=== PATIENT | male | born 1960 | race Caucasian/White ===

== ENCOUNTER 2024-04-11 09:09 | Outpatient (RCR) | payer BC, SELFPAY ==
[2024-04-11 10:21] LABS: Basophils # (Auto) 0.1 Thou/mm3 (0.0-0.2); Basophils % (Auto) 1 % (0-2.5); Eosinophils # (Auto) 0.1 Thou/mm3 (0.0-0.5); Eosinophils % (Auto) 2 % (0-10); Hematocrit 41.4 % (41.0-53.0); Immature Granulocytes % (Auto) 0 % (0-0); Immature Granulocytes Auto 0.03 Thou/mm3 (0.00-0.00); Lymphocytes # (Auto) 1.7 Thou/mm3 (1.0-4.8); Lymphocytes % (Auto) 24 % (10-50); Mean Corpuscular HGB Conc 33.8 g/dl (31.0-37.0); Mean Corpuscular Hemoglobin 30.7 pg (25.0-35.0); Mean Corpuscular Volume 91 fL (80-100); Monocytes # (Auto) 0.5 Thou/mm3 (0.0-0.8); Monocytes % (Auto) 7 % (0-12); Neutrophils # (Auto) 4.5 Thou/mm3 (1.8-7.7); Neutrophils % (Auto) 65 % (37-80); Nucleated Red Blood Cell % 0 /100 WBC (0); Platelet Count 224 Thou/mm3 (140-440); RDW Standard Deviation 43.8 fL (35.1-43.9); Red Blood Count 4.56 Miln/mm3 (4.50-5.90); White Blood Count 6.9 Thou/mm3 (3.8-10.6)
[2024-04-11 10:39] LABS: Alanine Aminotransferase 22 U/L (10-49); Albumin, Serum 4.7 gm/dL (3.4-4.8); Anion Gap 6 (7-16); Aspartate Amino Transferase 20 U/L (0-34); BUN/Creatinine Ratio 23 Ratio (12-20); Bilirubin,Total 0.6 mg/dL (0.3-1.2); Blood Urea Nitrogen 14 mg/dL (9-23); Calcium 9.6 mg/dL (8.3-10.6); Carbon Dioxide 25.2 mMol/L (20.0-31.0); Chloride 106 mMol/L (98-107); Creatinine (Component) 0.6 mg/dL (0.6-1.3); Glucose 103 mg/dL (74-106); Osmolality,Calculated 274 (275-295); Potassium 4.4 mMol/L (3.4-5.1); Sodium 137 mMol/L (136-145); Total Protein 6.9 gm/dL (5.7-8.2); eGFR > 60 See Note
[2024-04-11 10:40] LABS: Albumin/Globulin Ratio 2.1 (1.2-2.2); Alkaline Phosphatase 71 U/L (46-116); Calcium (Corrected) 9.6 mg/dL (8.5-10.1); Carcinoembryonic Antigen 0.8 ng/mL (0.0-5.0); Globulin 2.2 gm/dL (2.3-3.5)
== END 2024-04-12 23:59 | disposition home or self-care (01) ==
LOC: SCTC 09:09
PROVIDERS: Internal Medicine Hematology & Oncology; PCP Specialist; Referring Provider Specialist; Visit Provider Internal Medicine Hematology & Oncology
DX: C19 Malignant neoplasm of rectosigmoid junction (principal); E11.9 Type 2 diabetes mellitus without complications; E66.9 Obesity, unspecified; Z68.32 Body mass index [BMI] 32.0-32.9, adult
CPT/HCPCS: 36591; 80053; 82378; 85025; A4216; J1642

== ENCOUNTER 2024-04-16 13:48 | Outpatient (RCR) | payer BC, SELFPAY | END 2024-05-12 23:59 | disposition home or self-care (01) | LOC: SCTC 13:48 | PROVIDERS: PCP Specialist; Referring Provider Specialist; Visit Provider Internal Medicine Hematology & Oncology | DX: C19 Malignant neoplasm of rectosigmoid junction (principal); E11.42 Type 2 diabetes mellitus with diabetic polyneuropathy; E66.9 Obesity, unspecified; Z68.32 Body mass index [BMI] 32.0-32.9, adult | CPT/HCPCS: 99212; G0463 ==

== ENCOUNTER 2024-07-16 10:55 | Outpatient (RCR) | payer BC, SELFPAY ==
--- NOTE | 2024-07-16 15:32 | CTCFLWUP_ITS ---
Patient: TANIA ODONNELL : 1960 Page 2 of 2 FOLLOW UP NOTE DATE OF SERVICE: 07/16/2024 NAME: TANIA ODONNELL ACCOUNT: [id number] : 1960 AGE: 63 INTERVAL HISTORY: Patient is doing well and here to discuss his naterra results. Patient also saw physician at [facility] and requesting to order labs ordered by them. Patient otherwise doing well ONCOLOGY HISTORY: DIAGNOSIS: Malignant neoplasm of rectum [ICD10] C20 Clinical stage IIIb rectosigmoid adenocarcinoma, MMR proficient Currently undergoing neoadjuvant chemotherapy with FOLFIRINOX (08/17/2023??). 01/18/2024 for total 12 cycles of FOLFIRINOX History of type 2 diabetes. No evidence of peripheral neuropathy DATE OF DIAGNOSIS: 06/27/2023 STAGE/TNM: Stage III colon cancer TREATMENT HISTORY: Care?Plan Start?Date Cycle Day Intent FOLFIRINOX?anshu?rectal?LARISA?1?Neoadjuvant 08/17/2023 1 14 Curative?(primary) 5?FU?+?XRT?RECTAL?LARISA?2 11/07/2023 1 5 Curative?(primary) Rectal?[place]?trial?FOLFOX?neoadjuvant 11/09/2023 1 14 Curative?(primary) HISTORY OF PRESENT ILLNESS: The patient is a 63-year-old male with a history of type 2 diabetes was recently diagnosed with rectosigmoid adenocarcinoma. 06/27/2023: Mr. Odonnell had colonoscopy done to evaluate the cause for rectal bleeding. 07/21/2023: PET/CT scan 07/25/2023: MRI of the pelvis with IV contrast 08/17/2023: Mr. Odonnell is due for cycle of FOLFIRINOX. 08/31/2023: Mr. Odonnell received second cycle of FOLFIRINOX. 09/14/2023: Mr. Odonnell received third cycle of FOLFIRINOX. 09/28/2023: Mr. Odonnell received fourth cycle of FOLFIRINOX. 10/12/2023: Mr. Odonnell received fifth cycle of FOLFIRINOX. 10/26/2023: Mr. Odonnell received 6 cycle of FOLFIRINOX. 11/03/2023: CT scan of the abdomen and pelvis with IV contrast 11/03/2023: MRI of the pelvis with IV contrast 01/04/2024: Mr. 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 Tobacco?Pack?per?Day:?1 Tobacco?Use?Years:?30 Tobacco Use:?Quit smoking 2012; chewed tabocco x 40yrs- quit 2017 ETOH Use:?Socally now; beer daily for 15 yrs quit 15 yrs ago Drug?Note:?Denies Social History Note:?lives with adult children and grandchildren MEDICATIONS: 1. Cinnamon - 500 mg 2 Capsule Daily 2. ezetimibe-simvastatin - 10-20 mg 1 tab Daily 3. lisinopril - 40 mg 1 tab Daily 4. multivitamin - 1 Capsule Daily 5. Super B Complex - 1 tab Daily 6. turmeric root extract - 500 mg 1 tab Daily 7. Vitamin C - 1,000 mg 1 tab Daily Medications Last Reconciled by Christy Obrien MA on 07/16/2024 ALLERGIES: No Known Drug Allergies REVIEW OF SYSTEMS: A complete 14-point review of systems was performed and is negative except as noted in interval history. PHYSICAL EXAMINATION: VITAL SIGNS: PAIN: 0 - No pain ECOG Performance Status: 0 - Asymptomatic and fully active GENERAL APPEARANCE: Appears well, in no apparent distress, appropriately interactive. HEENT: Normocephalic, no temporal wasting, normal conjunctiva, no scleral icterus, normal hearing, lips without lesions, neck normal range of motion. CARDIOVASCULAR: Not assessed. PULMONARY: Normal respiratory effort, no respiratory distress or use of accessory muscles, speaking in full sentences, no tachypnea. EXTREMITIES: No pedal edema or cyanosis. SKIN: Normal skin appearance. NEUROLOGIC: Alert and oriented x4. PSHYCHIATRIC: Appropriate affect, mood normal, behavior normal, intact thought and speech. LABORATORY DATA: I have personally reviewed and interpreted each of the patient?s relevant lab tests, abnormal findings are below: Date 04/11/24 ??GLUCOSE,RANDOM?(mg/dL) 103 ??BLOOD?UREA?NITROGEN?(mg/dL) 14 ??CREATININE?(mg/dL) 0.60 ??SODIUM?(mmol/L) 137 ??POTASSIUM?(mmol/L) 4.4 ??CHLORIDE?(mmol/L) 106 ??CrCl?(CandG)?(ml/min) 157.74 ??AST/SGOT?(Unit/L) 20 ??ALT/SGPT?(Unit/L) 22 ??ALKALINE?PHOSPHATASE?(Unit/L) 71 ??BILIRUBIN,?TOTAL?(mg/dL) 0.6 ??PROTEIN?TOTAL?(gm/dl) 6.9 ??ALBUMIN,?SERUM?(gm/dl) 4.7 ??GLOBULIN?(gm/dl) 2.2?L ??ALBUMIN/GLOBULIN?RATIO 2.1 ??CALCIUM,?SERUM?(mg/dL) 9.6 ??CALCIUM?SERUM?(CORRECTED)?(mg/dL) 9.6 ASSESSMENT/PLAN: Stage IIIb (clinical T2, clinical N2, M0) rectosigmoid adenocarcinoma, MMR proficient. Completed 12 cycles of FOLFIRINOX neoadjuvantly Last dose was completed in January 2024 Patient had robotic LAR -resection done at [facility] which showed colonic tissue consistent with the donut no carcinoma. Initial diagnosis was of rectosigmoid colon low anterior resection showed residual adenocarcinoma 2 cm invading through the muscularis propria into soft tissue negative margins no carcinoma in 12 lymph nodes. Tumor size 2 x 1 x 0.6 cm all margins negative T3 N0 Ordered CBC CMP CEA and CT scan chest abdomen pelvis as per [facility] request and also for monitoring patient Discussed CT DNA results and are negative for colon cancer Will continue to monitor Mr. Odonnell every 6 months Discussed symptoms of recurrence including small caliber stools any blood and dark-colored stools changes in appetite and weight loss Patient endorsed understanding Stressed the need for plant-based diet Below problems reviewed with Mr. Odonnell and advised to follow-up with PCP #2 type 2 diabetes without any history of peripheral neuropathy. #3 obesity CBC CMP CEA CT scan chest abdomen pelvis with IV contrast RETURN TO CLINIC:Once scan results are back in 6 to 8 weeks. Can be with the video visit BILLING AND COMPLIANCE: I reviewed external records from providers outside my specialty as summarized above. I spent a total of 50 minutes on this patient?s care on the day of their visit excluding time spent related to any billed procedures. This time includes time spent with the patient as well as time spent documenting in the medical record, reviewing patients records and tests, obtaining history, placing orders, communicating with other healthcare professionals, counseling the patient, family or caregiver, and/or care coordination for the diagnoses above. Electronically Signed by: Bennie Jones MD T: 3:29 PM CC: Fernando?Sean? PCP: Aris Melendez Referring: Aris Melendez This document was completed utilizing speech recognition software. Grammatical errors, random word insertions, pronoun errors, and incomplete sentences are an occasional consequence of this system due to software limitations, ambient noise, and hardware issues. Any formal questions or concerns about the content, text or information contained within the body of this dictation should be directly addressed to the provider for clarification.
== END 2024-08-10 23:59 | disposition home or self-care (01) ==
LOC: SCTC 10:55
PROVIDERS: PCP Specialist; Referring Provider Specialist; Visit Provider Internal Medicine Hematology & Oncology
DX: Z71.2 Person consulting for explanation of examination or test findings (principal); C19 Malignant neoplasm of rectosigmoid junction; Z92.21 Personal history of antineoplastic chemotherapy; E11.9 Type 2 diabetes mellitus without complications; E66.9 Obesity, unspecified; Z68.36 Body mass index [BMI] 36.0-36.9, adult; Z90.49 Acquired absence of other specified parts of digestive tract
CPT/HCPCS: 99212; G0463

== ENCOUNTER → 2024-08-03 | Outpatient (CLI) | payer BC, SELFPAY ==
[2024-08-03 09:37] LABS: Basophils # (Auto) 0.1 Thou/mm3 (0.0-0.2); Basophils % (Auto) 1 % (0-2.5); Eosinophils # (Auto) 0.3 Thou/mm3 (0.0-0.5); Eosinophils % (Auto) 4 % (0-10); Hematocrit 43.6 % (41.0-53.0); Hemoglobin 14.9 g/dL (13.5-16.0); Immature Granulocytes % (Auto) 1 % (0-0); Immature Granulocytes Auto 0.12 Thou/mm3 (0.00-0.00); Lymphocytes # (Auto) 2.3 Thou/mm3 (1.0-4.8); Lymphocytes % (Auto) 27 % (10-50); Mean Corpuscular HGB Conc 34.2 g/dl (31.0-37.0); Mean Corpuscular Hemoglobin 29.5 pg (25.0-35.0); Mean Corpuscular Volume 86 fL (80-100); Monocytes # (Auto) 0.6 Thou/mm3 (0.0-0.8); Monocytes % (Auto) 8 % (0-12); Neutrophils # (Auto) 5.1 Thou/mm3 (1.8-7.7); Neutrophils % (Auto) 59 % (37-80); Nucleated Red Blood Cell % 0 /100 WBC (0); Platelet Count 229 Thou/mm3 (140-440); RDW Standard Deviation 44.1 fL (35.1-43.9); Red Blood Count 5.05 Miln/mm3 (4.50-5.90); White Blood Count 8.6 Thou/mm3 (3.8-10.6)
[2024-08-03 09:41] LABS: Glucose Estimated Average 123 mg/dL (80-131); Hemoglobin A1C 5.9 % Hgb (4.8-6.0)
[2024-08-03 09:54] LABS: Alanine Aminotransferase 35 U/L (10-49); Albumin, Serum 4.6 gm/dL (3.4-4.8); Albumin/Globulin Ratio 2.2 (1.2-2.2); Alkaline Phosphatase 68 U/L (46-116); Anion Gap 7 (7-16); Aspartate Amino Transferase 19 U/L (0-34); BUN/Creatinine Ratio 23 Ratio (12-20); Bilirubin,Total 0.6 mg/dL (0.3-1.2); Blood Urea Nitrogen 16 mg/dL (9-23); Carbon Dioxide 29.3 mMol/L (20.0-31.0); Carcinoembryonic Antigen < 0.5 ng/mL (0.0-5.0); Cardiac Risk Estimate 3.8 RATIO (4.0-6.7); Chloride 103 mMol/L (98-107); Cholesterol 142 mg/dL (132-200); Creatinine (Component) 0.7 mg/dL (0.6-1.3); Globulin 2.1 gm/dL (2.3-3.5); Glucose 124 mg/dL (74-106); HDL Cholesterol 37 mg/dL (40-60); LDL Cholesterol,Calculated 68 mg/dL (0-130); Osmolality,Calculated 279 (275-295); Potassium 5.3 mMol/L (3.4-5.1); Sodium 139 mMol/L (136-145); Total Protein 6.7 gm/dL (5.7-8.2); Triglycerides 183 mg/dL (30-150); eGFR > 60 See Note
[2024-08-03 10:48] LABS: Creatinine MALB Rnd Ur 57 mg/dL (30-125); Microalbumin Creat Ratio 7 mg/gCrea (<30); Microalbumin, Random Urine 4 mg/L (0-300)
== END | disposition home or self-care (01) ==
LOC: COPL 08:49
PROVIDERS: PCP Specialist; Referring Provider Internal Medicine Hematology & Oncology; Visit Provider Internal Medicine Hematology & Oncology
DX: C20 Malignant neoplasm of rectum (principal); E11.65 Type 2 diabetes mellitus with hyperglycemia; R91.1 Solitary pulmonary nodule; E78.2 Mixed hyperlipidemia
CPT/HCPCS: 36415; 80053; 80061; 82043; 82378; 82570; 83036; 85025

== ENCOUNTER → 2024-08-07 | Outpatient (CLI) | payer BC, SELFPAY ==
--- NOTE | 2024-08-07 15:30 | XR_ITS ---
Examination: CT chest with intravenous contrast CT abdomen with intravenous contrast CT pelvis with intravenous contrast CT chest without intravenous contrast CT abdomen without intravenous contrast CT pelvis without intravenous contrast 2-D coronal and sagittal reconstructions Time of exam: August 07, 2024 1547 hrs. Comparison November 02, 2023 Indications: Diagnosis malignant neoplasm colon February 2024, restaging CTDI: vol (mGy) : 34.1 DLP: (mGycm): 2287 Technique: Multiple axial images of the chest, abdomen and pelvis with intravenous contrast, 3.0 mm slice thickness. Images obtained post intravenous injection Isovue 370 60 cc. 2-D sagittal and coronal reconstructions. Low dose protocols were performed. One or more of the following dose reduction techniques were used; automated exposure control, adjustment of the mA and/or KV according to patient size, use of iterative reconstruction technique. Findings: No thoracic aortic aneurysm dilatation Pulmonary artery opacification is poor No paratracheal tracheobronchial or bronchopulmonary adenopathy Atelectasis in the left lower lobe Mild left pleural fluid 6 mm liver cyst No gallstones No pancreatic or adrenal mass No hydronephrosis Abdominal aortic calcification no aneurysmal dilatation Stable 7 mm left common iliac lymph node No new lymphadenopathy Sutures in the sigmoid colon region Urinary bladder intact Minimal prostatomegaly Impression: No interval metastatic disease in the chest Stable 7 mm left common iliac lymph node, no new lymphadenopathy
== END | disposition home or self-care (01) ==
LOC: CCTX 14:46
PROVIDERS: Referring Provider Internal Medicine Hematology & Oncology; Visit Provider Internal Medicine Hematology & Oncology
DX: C20 Malignant neoplasm of rectum (principal)
CPT/HCPCS: 71270; 74178; A4649; Q9967

== ENCOUNTER 2024-10-08 14:51 | Outpatient (RCR) | payer BC, SELFPAY ==
--- NOTE | 2024-10-09 01:27 | CTCFLWUP_ITS ---
Patient: TANIA ODONNELL : 1960 Page 7 of 8 FOLLOW UP NOTE DATE OF SERVICE: 10/08/2024 NAME: TANIA ODONNELL ACCOUNT: [id number] : 1960 AGE: 64 INTERVAL HISTORY: Marlene Joel, a post-colon cancer treatment patient, completed 12 cycles of chemotherapy in January and underwent a resection with negative margins. Recent CT and CTDNA results were negative for disease recurrence. 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 The plan includes continued surveillance, cold therapy for neuropathy, and consideration of medications for weight loss and glucose control. Chief Complaint Follow-up visit for colon cancer treatment, neuropathy symptoms post-chemotherapy History of Present Illness Marlene Joel is a patient with a history of colon cancer who completed 12 cycles of chemotherapy in January and underwent a resection. The patient is presenting for a follow-up visit to discuss recent test results and ongoing management. The patient reports experiencing neuropathy, which was mentioned as a potential side effect of chemotherapy. The neuropathy's onset, severity, and specific impact on daily functioning are not detailed. The patient has a history of diabetes, which may be exacerbating the neuropathy symptoms. Since the last visit in July, the patient has undergone CTDNA testing (DCITS) which was negative for colon cancer. The patient has been adhering to a plant-based diet as previously recommended, avoiding peanuts due to their high caloric content. No other changes in overall health status or new symptoms are reported. Medical History - Colon cancer, treated with chemotherapy and resection - Diabetes - Chemotherapy-induced peripheral neuropathy Surgical History - Colon cancer resection, with negative margins Medications and Supplements - Chemotherapy - Completed 12 cycles. Last one in January. - B6 - B12 - Gabapentin - Available for pain. - Side effects: Can be habit-forming. Social History - Diet: Following a plant-based diet, advised to avoid peanuts due to high calorie content - Exercise: Advised to increase physical activity Review of Systems Neurological: Positive for neuropathy. ONCOLOGY HISTORY: DIAGNOSIS: Malignant neoplasm of rectum [ICD10] C20 Clinical stage IIIb rectosigmoid adenocarcinoma, MMR proficient Currently undergoing neoadjuvant chemotherapy with FOLFIRINOX (08/17/2023??). 01/18/2024 for total 12 cycles of FOLFIRINOX History of type 2 diabetes. No evidence of peripheral neuropathy DATE OF DIAGNOSIS: 06/27/2023 STAGE/TNM: Stage III colon cancer TREATMENT HISTORY: Care?Plan Start?Date Cycle Day Intent FOLFIRINOX?anshu?rectal?LARISA?1?Neoadjuvant 08/17/2023 1 14 Curative?(primary) 5?FU?+?XRT?RECTAL?LARISA?2 11/07/2023 1 5 Curative?(primary) Rectal?[place]?trial?FOLFOX?neoadjuvant 11/09/2023 1 14 Curative?(primary) HISTORY OF PRESENT ILLNESS: The patient is a 64-year-old male with a history of type 2 diabetes was recently diagnosed with rectosigmoid adenocarcinoma. 06/27/2023: Mr. Odonnell had colonoscopy done to evaluate the cause for rectal bleeding. 07/21/2023: PET/CT scan 07/25/2023: MRI of the pelvis with IV contrast 08/17/2023: Mr. Odonnell is due for cycle of FOLFIRINOX. 08/31/2023: Mr. Odonnell received second cycle of FOLFIRINOX. 09/14/2023: Mr. Odonnell received third cycle of FOLFIRINOX. 09/28/2023: Mr. Odonnell received fourth cycle of FOLFIRINOX. 10/12/2023: Mr. Odonnell received fifth cycle of FOLFIRINOX. 10/26/2023: Mr. Odonnell received 6 cycle of FOLFIRINOX. 11/03/2023: CT scan of the abdomen and pelvis with IV contrast 11/03/2023: MRI of the pelvis with IV contrast 01/04/2024: Mr. 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 Tobacco?Pack?per?Day:?1 Tobacco?Use?Years:?30 Tobacco Use:?Quit smoking 2013; chewed tabocco x 40yrs- quit 2017 ETOH Use:?Socally now; beer daily for 15 yrs quit 15 yrs ago Drug?Note:?Denies Social History Note:?lives with adult children and grandchildren MEDICATIONS: 1. Cinnamon - 500 mg 2 Capsule Daily 2. CoQ-10 - 100 mg 1 Capsule As directed 3. ezetimibe-simvastatin - 10-20 mg 1 tab Daily 4. lisinopril - 40 mg 1 tab Daily 5. multivitamin - 1 Capsule Daily 6. Super B Complex - 1 tab Daily 7. turmeric root extract - 500 mg 1 tab Daily 8. Vitamin B12 - 500 mcg 1 tab Daily 9. Vitamin B6 - 100 mg 1 tab Daily 10. Vitamin C - 1,000 mg 1 tab Daily Medications Last Reconciled by Christy Obrien MA on 10/08/2024 ALLERGIES: No Known Drug Allergies REVIEW OF SYSTEMS: A complete 14-point review of systems was performed and is negative except as noted in interval history. PHYSICAL EXAMINATION: VITAL SIGNS: Temperature?99.8, B/P?146/82, Oxygen?Saturation?94% Weight?288?lbs PAIN: 0 - No pain ECOG Performance Status: 0 - Asymptomatic and fully active GENERAL APPEARANCE: Appears well, in no apparent distress, appropriately interactive. HEENT: Normocephalic, no temporal wasting, normal conjunctiva, no scleral icterus, normal hearing, lips without lesions, neck normal range of motion. CARDIOVASCULAR: Not assessed. PULMONARY: Normal respiratory effort, no respiratory distress or use of accessory muscles, speaking in full sentences, no tachypnea. EXTREMITIES: No pedal edema or cyanosis. SKIN: Normal skin appearance. NEUROLOGIC: Alert and oriented x4. PSHYCHIATRIC: Appropriate affect, mood normal, behavior normal, intact thought and speech. LABORATORY DATA: I have personally reviewed and interpreted each of the patient?s relevant lab tests, abnormal findings are below: Date 04/11/24 08/03/24 ??WHITE?BLOOD?COUNT?(Thou/mm3) 6.9 8.6 ??RED?BLOOD?COUNT?(Miln/mm3) 4.56 5.05 ??HEMOGLOBIN?(gm/dl) 14.0 14.9 ??HEMATOCRIT?(%) 41.4 43.6 ??PLATELET?COUNT?(Thou/mm3) 224 229 ??NEUTROPHILS?%,?AUTO?(%) 65 59 ??LYMPH?%,?AUTO?(%) 24 27 ??NEUTROPHILS,?AUTO?(Thou/mm3) 4.5 5.1 ??GLUCOSE,RANDOM?(mg/dL) ? 124?H ??BLOOD?UREA?NITROGEN?(mg/dL) ? 16 ??CREATININE?(mg/dL) ? 0.70 ??SODIUM?(mmol/L) ? 139 ??POTASSIUM?(mmol/L) ? 5.3?H ??CHLORIDE?(mmol/L) ? 103 ??CrCl?(CandG)?(ml/min) ? 142.53 ??AST/SGOT?(Unit/L) ? 19 ??ALT/SGPT?(Unit/L) ? 35 ??ALKALINE?PHOSPHATASE?(Unit/L) ? 68 ??BILIRUBIN,?TOTAL?(mg/dL) ? 0.6 ??PROTEIN?TOTAL?(gm/dl) ? 6.7 ??ALBUMIN,?SERUM?(gm/dl) ? 4.6 ??GLOBULIN?(gm/dl) ? 2.1?L ??ALBUMIN/GLOBULIN?RATIO ? 2.2 ??CALCIUM,?SERUM?(mg/dL) ? 10.0 ??CALCIUM?SERUM?(CORRECTED)?(mg/dL) ? 10.0 ??CEA?(O*)?(ng/ml) ? <?0.5 ASSESSMENT/PLAN: Stage IIIb (clinical T2, clinical N2, M0) rectosigmoid adenocarcinoma, MMR proficient. Completed 12 cycles of FOLFIRINOX neoadjuvantly Last dose was completed in January 2024 Patient had robotic LAR -resection done at [facility] which showed colonic tissue consistent with the donut no carcinoma. Initial diagnosis was of rectosigmoid colon low anterior resection showed residual adenocarcinoma 2 cm invading through the muscularis propria into soft tissue negative margins no carcinoma in 12 lymph nodes. Tumor size 2 x 1 x 0.6 cm all margins negative T3 N0 Marlene Joel, post-colon cancer treatment patient, completed 12 cycles of chemotherapy in January, with recent negative CT scan and CTDNA results, presenting for follow-up and management of chemotherapy-induced neuropathy. Colon Cancer (Post-treatment) Assessment: Patient completed 12 cycles of chemotherapy for colon cancer, with the last cycle in January. Surgical resection was performed with negative margins. Recent CT chest and abdomen with IV contrast on 08-07-2024 showed no interval metastatic disease in the chest and a stable 7 mm left common iliac lymph node. CTDNA results (Lencho test) were negative for colon cancer. These findings suggest a favorable response to treatment with no evidence of disease recurrence at this time. Plan: - Continue surveillance with Lencho test every 3 months - Schedule follow-up CT scan in 6 months to 1 year - Proceed with scheduled colonoscopy on February 13 - Follow-up appointment in 6 months Chemotherapy-induced Peripheral Neuropathy Assessment: Patient reports neuropathy, likely a side effect of chemotherapy treatment. This condition may be exacerbated by the patient's history of diabetes. Plan: - Recommend cold therapy: immerse hands and feet in ice water for 10 minutes daily, followed by drying and applying lotion - Continue cold therapy for 10 days; if helpful, patient may continue treatment - Consider checking vitamin B6 and B12 levels if concerned about deficiency - Discuss alternative options: - Ice packs or cold therapy gloves and socks (available on Fios) - Gabapentin for pain management (inform patient about side effects and habit- forming potential) Diabetes Mellitus Assessment: Patient has a history of diabetes, which may be contributing to the neuropathy symptoms. Weight management and glucose control are important aspects of diabetes management. Plan: - Consider medications such as Mounjaro or Wegovy for weight loss and glucose control - Recommend dietary adjustments and increased physical activity - Continue plant-based diet - Avoid peanuts due to high caloric contentDiscussed CT DNA results and are negative for colon cancer Will continue to monitor Mr. Odonnell every 6 months Discussed symptoms of recurrence including small caliber stools any blood and dark-colored stools changes in appetite and weight loss Patient endorsed understanding Stressed the need for plant-based diet Below problems reviewed with Mr. Odonnell and advised to follow-up with PCP #2 type 2 diabetes without any history of peripheral neuropathy. #3 obesity CBC CMP CEA CT scan chest abdomen pelvis with IV contrast ORDERS: Order # Description RETURN TO CLINIC: BILLING AND COMPLIANCE: I reviewed external records from providers outside my specialty as summarized above. I spent a total of 50 minutes on this patient?s care on the day of their visit excluding time spent related to any billed procedures. This time includes time spent with the patient as well as time spent documenting in the medical record, reviewing patients records and tests, obtaining history, placing orders, communicating with other healthcare professionals, counseling the patient, family or caregiver, and/or care coordination for the diagnoses above. Electronically Signed by: {Object.Sanct_ID*[email or web address]@M}, {Object.Sanct_ID*PnP.Suffix@U} D: {Object.Sanct_Date} T: {Object.Sanct_Time} CC: Fernando?Sean,? PCP: Aris Melendez Referring: Aris Melendez This document was completed utilizing speech recognition software. Grammatical errors, random word insertions, pronoun errors, and incomplete sentences are an occasional consequence of this system due to software limitations, ambient noise, and hardware issues. Any formal questions or concerns about the content, text or information contained within the body of this dictation should be directly addressed to the provider for clarification.
== END 2024-10-10 23:59 | disposition home or self-care (01) ==
LOC: SCTC 14:51
PROVIDERS: PCP Specialist; Referring Provider Specialist; Visit Provider Internal Medicine Hematology & Oncology
DX: Z08 Encounter for follow-up examination after completed treatment for malignant neoplasm (principal); Z85.038 Personal history of other malignant neoplasm of large intestine; Z90.49 Acquired absence of other specified parts of digestive tract; Z92.21 Personal history of antineoplastic chemotherapy; G62.0 Drug-induced polyneuropathy; T45.1X5D Adverse effect of antineoplastic and immunosuppressive drugs, subsequent encounter; E11.9 Type 2 diabetes mellitus without complications; E66.9 Obesity, unspecified; Z68.39 Body mass index [BMI] 39.0-39.9, adult
CPT/HCPCS: 99212; G0463

== ENCOUNTER → 2025-02-07 | Outpatient (CLI) | payer BC, SELFPAY ==
[2025-02-07 12:01] LABS: Carcinoembryonic Antigen 0.7 ng/mL (0.0-5.0); Vitamin D 25 Hydroxy Total 27.3 ng/mL (7.3-40.2)
[2025-02-07 12:04] LABS: Creatinine (Component) 0.7 mg/dL (0.6-1.3); eGFR > 60 See Note
== END | disposition home or self-care (01) ==
LOC: COPL 10:17
PROVIDERS: PCP Specialist
DX: C20 Malignant neoplasm of rectum (principal)
CPT/HCPCS: 36415; 82306; 82378; 82565

== ENCOUNTER 2025-02-13 07:25 | Day surgery (SDC) | payer BC, SELFPAY ==
[2025-02-12 12:48] VITALS: BMI 33.3
[2025-02-13] VITALS (8 sets, daily range): BP systolic 128–166; BP diastolic 76–92; PULSE 73–81; RESP 11–20; TEMP 36.7–36.8; O2SAT 92–97
[2025-02-13] MEDS: SODIUM CHLORIDE 0.9% 500 ML 500 ML 20 ML IV (09:16)
[2025-02-13] MEDS: fentaNYL CIT INJ 50 mCg/ML AMP 2ML (ASD USE ONLY) IVP (09:20)
[2025-02-13] MEDS: MIDAZOLAM INJ 1 MG/ML VIAL 2 ML (ASD USE ONLY) 2 MG IVP (09:20)
== END 2025-02-13 10:00 | disposition home or self-care (01) ==
PROVIDERS: PCP Specialist; Referring Provider Specialist; Visit Provider Specialist
PROC: 0DBE8ZX Excision of Large Intestine, Via Natural or Artificial Opening Endoscopic, Diagnostic (ICD-10-PCS; CPT 45380; principal; 2025-02-13 08:30)
DX: Z12.11 Encounter for screening for malignant neoplasm of colon (principal); Z85.048 Personal history of other malignant neoplasm of rectum, rectosigmoid junction, and anus; Z85.038 Personal history of other malignant neoplasm of large intestine; Z98.0 Intestinal bypass and anastomosis status; K64.9 Unspecified hemorrhoids; K57.30 Diverticulosis of large intestine without perforation or abscess without bleeding
CPT/HCPCS: 45378; A4649; J1200; J2250; J3010; J7999

== ENCOUNTER → 2025-02-22 | Outpatient (CLI) | payer BC, SELFPAY ==
--- NOTE | 2025-02-22 10:00 | XR_ITS ---
Examination: CT chest with intravenous contrast CT abdomen with intravenous contrast CT pelvis with intravenous contrast 2-D coronal and sagittal reconstructions Time of exam: February 22, 2025, 10:40 AM, comparison August 07, 2024 INDICATIONS: Diagnosis malignant neoplasm colon one year ago, post chemotherapy and surgery restaging CTDI: vol (mGy) : 33.9 DLP: (mGycm): 1801 Technique: Multiple axial images of the chest, abdomen and pelvis with intravenous contrast, 3.0 mm slice thickness. Images obtained post intravenous injection Isovue 370 60 cc. 2-D sagittal and coronal reconstructions. Low dose protocols were performed. One or more of the following dose reduction techniques were used; automated exposure control, adjustment of the mA and/or KV according to patient size, use of iterative reconstruction technique. Findings: Multiple subcentimeter thyroid nodules No thoracic aortic aneurysmal dilatation No pulmonary artery filling defects No paratracheal tracheobronchial or bronchopulmonary adenopathy. No pneumonia or pulmonary edema or noncalcified pulmonary nodules. No visualized liver or splenic lesion No gallstones No pancreatic mass Nodular thickening left adrenal gland No hydronephrosis 7 mm, 6 mm, 4 mm, 6 mm periaortic lymph nodes 9 mm left common iliac lymph node No bowel obstruction Normal appendix Colonic diverticulosis Rectosigmoid sutures No prostatomegaly Contracted urinary bladder Prominent osteopenia IMPRESSION: Abdominal and pelvic lymphadenopathy as above, consider PET CT scan repeat follow-up
== END | disposition home or self-care (01) ==
PROVIDERS: PCP Specialist
DX: R59.0 Localized enlarged lymph nodes (principal); C20 Malignant neoplasm of rectum
CPT/HCPCS: 71260; 74177; A4649; Q9967

== ENCOUNTER 2025-04-08 12:54 | Outpatient (RCR) | payer BC, SELFPAY ==
[2025-04-08 15:20] LABS: Basophils # (Auto) 0.1 Thou/mm3 (0.0-0.2); Basophils % (Auto) 1 % (0-2.5); Eosinophils # (Auto) 0.2 Thou/mm3 (0.0-0.5); Eosinophils % (Auto) 2 % (0-10); Hematocrit 42.4 % (41.0-53.0); Hemoglobin 14.3 g/dL (13.5-16.0); Immature Granulocytes Auto 0.08 Thou/mm3 (0.00-0.00); Lymphocytes # (Auto) 2.3 Thou/mm3 (1.0-4.8); Lymphocytes % (Auto) 25 % (10-50); Mean Corpuscular HGB Conc 33.7 g/dl (31.0-37.0); Mean Corpuscular Hemoglobin 30.0 pg (25.0-35.0); Mean Corpuscular Volume 89 fL (80-100); Monocytes # (Auto) 0.8 Thou/mm3 (0.0-0.8); Monocytes % (Auto) 8 % (0-12); Neutrophils # (Auto) 5.9 Thou/mm3 (1.8-7.7); Neutrophils % (Auto) 63 % (37-80); Nucleated Red Blood Cell # 0.00 Thou/mm3 (0.00-0.00); Nucleated Red Blood Cell % 0 /100 WBC (0); Platelet Count 255 Thou/mm3 (140-440); RDW Standard Deviation 44.4 fL (35.1-43.9); Red Blood Count 4.77 Miln/mm3 (4.50-5.90); White Blood Count 9.4 Thou/mm3 (3.8-10.6)
[2025-04-08 15:39] LABS: Glucose Estimated Average 157 mg/dL (80-131); Hemoglobin A1C 7.1 % Hgb (4.8-6.0)
[2025-04-08 15:40] LABS: Alanine Aminotransferase 65 U/L (10-49); Albumin, Serum 4.7 gm/dL (3.4-4.8); Albumin/Globulin Ratio 2.4 (1.2-2.2); Alkaline Phosphatase 55 U/L (46-116); Anion Gap 13 (7-16); Aspartate Amino Transferase 41 U/L (0-34); BUN/Creatinine Ratio 16 Ratio (12-20); Bilirubin,Total 0.4 mg/dL (0.3-1.2); Blood Urea Nitrogen 13 mg/dL (9-23); Calcium 9.3 mg/dL (8.3-10.6); Calcium (Corrected) 9.3 mg/dL (8.5-10.1); Carbon Dioxide 23.2 mMol/L (20.0-31.0); Chloride 107 mMol/L (98-107); Creatinine (Component) 0.8 mg/dL (0.6-1.3); Globulin 2.0 gm/dL (2.3-3.5); Glucose 100 mg/dL (74-106); Osmolality,Calculated 285 (275-295); Potassium 4.3 mMol/L (3.4-5.1); Sodium 143 mMol/L (136-145); Total Protein 6.7 gm/dL (5.7-8.2); eGFR > 60 See Note
[2025-04-08 15:42] LABS: Carcinoembryonic Antigen 0.7 ng/mL (0.0-5.0)
[2025-04-08 15:51] LABS: Folate > 24.00 ng/mL (>5.38); Vitamin B12 1008 pg/mL (211-911)
== END 2025-04-12 23:59 | disposition home or self-care (01) ==
LOC: SCTC 12:54
PROVIDERS: PCP Specialist; Referring Provider Specialist; Visit Provider Internal Medicine Hematology & Oncology
DX: C19 Malignant neoplasm of rectosigmoid junction (principal); G62.0 Drug-induced polyneuropathy; T45.1X5D Adverse effect of antineoplastic and immunosuppressive drugs, subsequent encounter; E11.42 Type 2 diabetes mellitus with diabetic polyneuropathy; Z92.21 Personal history of antineoplastic chemotherapy; E66.9 Obesity, unspecified; Z68.39 Body mass index [BMI] 39.0-39.9, adult
CPT/HCPCS: 36591; 80053; 82378; 82607; 82746; 83036; 85025; A4216; J1642

== ENCOUNTER 2025-04-29 09:15 | Outpatient (RCR) | payer BC, SELFPAY ==
--- NOTE | 2025-04-30 07:33 | CTCFLWUP_ITS ---
Patient: WISAM ODONNELL : 1960 Page 2 of 2 FOLLOW UP NOTE DATE OF SERVICE: 04/29/2025 NAME: WISAM ODONNELL ACCOUNT: [id number] : 1960 AGE: 64 INTERVAL HISTORY: Marlene Joel, rectal cancer treatment patient, completed 12 cycles of chemotherapy in January and underwent a resection with negative margins. Recent CT and CTDNA results were negative for disease recurrence. Recent CT shows small lymph nodes in pelvic area . will get MRI to evaluate better in May . 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 The plan includes continued surveillance, cold therapy for neuropathy, and consideration of medications for weight loss and glucose control. Chief Complaint Follow-up visit for colon cancer treatment, neuropathy symptoms post-chemotherapy History of Present Illness Marlene Joel is a patient with a history of colon cancer who completed 12 cycles of chemotherapy in January and underwent a resection. The patient is presenting for a follow-up visit to discuss recent test results and ongoing management. The patient reports experiencing neuropathy, which was mentioned as a potential side effect of chemotherapy. The neuropathy's onset, severity, and specific impact on daily functioning are not detailed. The patient has a history of diabetes, which may be exacerbating the neuropathy symptoms. Since the last visit in July, the patient has undergone CTDNA testing ([employer]) which was negative for colon cancer. The patient has been adhering to a plant-based diet as previously recommended, avoiding peanuts due to their high caloric content. No other changes in overall health status or new symptoms are reported. Medical History - Colon cancer, treated with chemotherapy and resection - Diabetes - Chemotherapy-induced peripheral neuropathy Surgical History - Colon cancer resection, with negative margins Medications and Supplements - Chemotherapy - Completed 12 cycles. Last one in January. - B6 - B12 - Gabapentin - Available for pain. - Side effects: Can be habit-forming. Social History - Diet: Following a plant-based diet, advised to avoid peanuts due to high calorie content - Exercise: Advised to increase physical activity Review of Systems Neurological: Positive for neuropathy. ONCOLOGY HISTORY:?[facility] Hx? DIAGNOSIS: Malignant neoplasm of rectum [ICD10] C20 Clinical stage IIIb rectosigmoid adenocarcinoma, MMR proficient Currently undergoing neoadjuvant chemotherapy with FOLFIRINOX (08/17/2023??). 01/18/2024 for total 12 cycles of FOLFIRINOX History of type 2 diabetes. No evidence of peripheral neuropathy DATE OF DIAGNOSIS: 06/27/2023 STAGE/TNM: Stage III colon cancer TREATMENT HISTORY: Care?Plan Start?Date Cycle Day Intent FOLFIRINOX?anshu?rectal?LARISA?1?Neoadjuvant 08/17/2023 1 14 Curative?(primary) 5?FU?+?XRT?RECTAL?LARISA?2 11/07/2023 1 5 Curative?(primary) Rectal?[place]?trial?FOLFOX?neoadjuvant 11/09/2023 1 14 Curative?(primary) HISTORY OF PRESENT ILLNESS: The patient is a 64-year-old male with a history of type 2 diabetes was recently diagnosed with rectosigmoid adenocarcinoma. 06/27/2023: Mr. Odonnell had colonoscopy done to evaluate the cause for rectal bleeding. 07/21/2023: PET/CT scan 07/25/2023: MRI of the pelvis with IV contrast 08/17/2023: Mr. Odonnell is due for cycle of FOLFIRINOX. 08/31/2023: Mr. Odonnell received second cycle of FOLFIRINOX. 09/14/2023: Mr. Odonnell received third cycle of FOLFIRINOX. 09/28/2023: Mr. Odonnell received fourth cycle of FOLFIRINOX. 10/12/2023: Mr. Odonnell received fifth cycle of FOLFIRINOX. 10/26/2023: Mr. Odonnell received 6 cycle of FOLFIRINOX. 11/03/2023: CT scan of the abdomen and pelvis with IV contrast 11/03/2023: MRI of the pelvis with IV contrast 01/04/2024: Mr. 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 Tobacco?Pack?per?Day:?1 Tobacco?Use?Years:?30 Tobacco Use:?Quit smoking 2013; chewed tabocco x 40yrs- quit 2017 ETOH Use:?Socally now; beer daily for 15 yrs quit 15 yrs ago Drug?Note:?Denies Social History Note:?lives with adult children and grandchildren MEDICATIONS: 1. Bystolic - 2.5 mg 1 tab Daily 2. Cinnamon - 500 mg 2 Capsule Daily 3. CoQ-10 - 100 mg 1 Capsule As directed 4. ezetimibe-simvastatin - 10-20 mg 1 tab Daily 5. lisinopril - 40 mg 1 tab Daily 6. multivitamin - 1 Capsule Daily 7. Super B Complex - 1 tab Daily 8. turmeric root extract - 500 mg 1 tab Daily 9. Vitamin B12 - 500 mcg 1 tab Daily 10. Vitamin B6 - 100 mg 1 tab Daily 11. Vitamin C - 1,000 mg 1 tab Daily?Palabra Meds? Medications Last Reconciled by Christy Ignacio MD on 04/29/2025 ALLERGIES: No Known Drug Allergies REVIEW OF SYSTEMS: A complete 14-point review of systems was performed and is negative except as noted in interval history. PHYSICAL EXAMINATION:?[facility] PE? VITAL SIGNS: Temperature?98.9, B/P?160/82, Oxygen?Saturation?95% Weight?290?lbs (Change?since?04/08/25:?0.4?lbs) PAIN: 0 - No pain ECOG Performance Status: 0 - Asymptomatic and fully active GENERAL APPEARANCE: Appears well, in no apparent distress, appropriately interactive. HEENT: Normocephalic, no temporal wasting, normal conjunctiva, no scleral icterus, normal hearing, lips without lesions, neck normal range of motion. CARDIOVASCULAR: Not assessed. PULMONARY: Normal respiratory effort, no respiratory distress or use of accessory muscles, speaking in full sentences, no tachypnea. EXTREMITIES: No pedal edema or cyanosis. SKIN: Normal skin appearance. NEUROLOGIC: Alert and oriented x4. PSHYCHIATRIC: Appropriate affect, mood normal, behavior normal, intact thought and speech. LABORATORY DATA: I have personally reviewed and interpreted each of the patient?s relevant lab tests, abnormal findings are below: Date 02/07/25 04/08/25 ??WHITE?BLOOD?COUNT?(Thou/mm3) ? 9.4 ??RED?BLOOD?COUNT?(Miln/mm3) ? 4.77 ??HEMOGLOBIN?(gm/dl) ? 14.3 ??HEMATOCRIT?(%) ? 42.4 ??PLATELET?COUNT?(Thou/mm3) ? 255 ??NEUTROPHILS?%,?AUTO?(%) ? 63 ??LYMPH?%,?AUTO?(%) ? 25 ??NEUTROPHILS,?AUTO?(Thou/mm3) ? 5.9 ??GLUCOSE,RANDOM?(mg/dL) ? 100 ??BLOOD?UREA?NITROGEN?(mg/dL) ? 13 ??CREATININE?(mg/dL) ? 0.80 ??SODIUM?(mmol/L) ? 143 ??POTASSIUM?(mmol/L) ? 4.3 ??CHLORIDE?(mmol/L) ? 107 ??CrCl?(CandG)?(ml/min) ? 128.55 ??AST/SGOT?(Unit/L) ? 41?H ??ALT/SGPT?(Unit/L) ? 65?H ??ALKALINE?PHOSPHATASE?(Unit/L) ? 55 ??BILIRUBIN,?TOTAL?(mg/dL) ? 0.4 ??PROTEIN?TOTAL?(gm/dl) ? 6.7 ??ALBUMIN,?SERUM?(gm/dl) ? 4.7 ??GLOBULIN?(gm/dl) ? 2.0?L ??ALBUMIN/GLOBULIN?RATIO ? 2.4?H ??CALCIUM,?SERUM?(mg/dL) ? 9.3 ??CALCIUM?SERUM?(CORRECTED)?(mg/dL) ? 9.3 ??CEA?(O*)?(ng/ml) 0.7 0.7 ASSESSMENT/PLAN:?Holden Jones Assessment/Plan? Stage IIIb (clinical T2, clinical N2, M0) rectosigmoid adenocarcinoma, MMR proficient. Completed 12 cycles of FOLFIRINOX neoadjuvantly Last dose was completed in January 2024 Patient had robotic LAR -resection done at [facility] which showed colonic tissue consistent with the donut no carcinoma. Initial diagnosis was of rectosigmoid colon low anterior resection showed residual adenocarcinoma 2 cm invading through the muscularis propria into soft tissue negative margins no carcinoma in 12 lymph nodes. Tumor size 2 x 1 x 0.6 cm all margins negative T3 N0 Marlene Wisam, post-colon cancer treatment patient, completed 12 cycles of chemotherapy in January, with recent negative CT scan and CTDNA results, presenting for follow-up and management of chemotherapy-induced neuropathy. Colon Cancer (Post-treatment) Assessment: Patient completed 12 cycles of chemotherapy for colon cancer, with the last cycle in January. Surgical resection was performed with negative margins. Recent CT chest and abdomen with IV contrast on 08-07-2024 showed no interval metastatic disease in the chest and a stable 7 mm left common iliac lymph node. CTDNA results (Lencho test) were negative for colon cancer. These findings suggest a favorable response to treatment with no evidence of disease recurrence at this time. Colonoscopy is negative CT shows small LN s Plan: - Continue surveillance with Lencho test every 3 months - Schedule follow-up after MRI results in 06/2025 - - colonoscopy in 2 years Chemotherapy-induced Peripheral Neuropathy Assessment: Patient reports neuropathy, likely a side effect of chemotherapy treatment. This condition may be exacerbated by the patient's history of diabetes. Plan: - Recommend cold therapy: immerse hands and feet in ice water for 10 minutes daily, followed by drying and applying lotion - Continue cold therapy for 10 days; if helpful, patient may continue treatment - Consider checking vitamin B6 and B12 levels if concerned about deficiency - Discuss alternative options: - Ice packs or cold therapy gloves and socks (available on [employer]) - Gabapentin for pain management (inform patient about side effects and habit- forming potential) Diabetes Mellitus Assessment: Patient has a history of diabetes, which may be contributing to the neuropathy symptoms. Weight management and glucose control are important aspects of diabetes management. Plan: - Consider medications such as Mounjaro or Wegovy for weight loss and glucose control - Recommend dietary adjustments and increased physical activity - Continue plant-based diet - Avoid peanuts due to high caloric contentDiscussed CT DNA results and are negative for colon cancer Will continue to monitor Mr. Odonnell every 6 months Discussed symptoms of recurrence including small caliber stools any blood and dark-colored stools changes in appetite and weight loss Patient endorsed understanding Stressed the need for plant-based diet Below problems reviewed with Mr. Odonnell and advised to follow-up with PCP #2 type 2 diabetes without any history of peripheral neuropathy. #3 obesity CBC CMP CEA mri abdomenawith contrast ORDERS: Order # Description [id number] MRI + Abdomen and Pelvis + With Contrast [id number] Comprehensive Metabolic Panel - 12 + CBC with Auto Diff + CEA + MD Follow Up 3 Months RETURN TO CLINIC: I reviewed the diagnosis, prognosis, and recommended treatment/procedure options with the patient (and/or their legal cash application representative), including the potential benefits, risks, side effects and alternative therapies. We also discussed the option of no treatment and the possibility of clinical trial participation, if applicable. All questions were addressed, and they demonstrated understanding. They provided informed consent to proceed with the proposed plan of care. BILLING AND COMPLIANCE: I reviewed external records from providers outside my specialty as summarized above. I spent a total of 50 minutes on this patient?s care on the day of their visit excluding time spent related to any billed procedures. This time includes time spent with the patient as well as time spent documenting in the medical record, reviewing patients records and tests, obtaining history, placing orders, communicating with other healthcare professionals, counseling the patient, family or caregiver, and/or care coordination for the diagnoses above. Electronically Signed by: Bennie Jones MD T: 7:30 AM CC: Fernando?ADARSH Estrada PCP: Aris Melendez Referring: Aris Melendez This document was completed utilizing speech recognition software. Grammatical errors, random word insertions, pronoun errors, and incomplete sentences are an occasional consequence of this system due to software limitations, ambient noise, and hardware issues. Any formal questions or concerns about the content, text or information contained within the body of this dictation should be directly addressed to the provider for clarification.
== END 2025-05-12 23:59 | disposition home or self-care (01) ==
LOC: SCTC 09:15
PROVIDERS: PCP Specialist; Referring Provider Specialist; Visit Provider Internal Medicine Hematology & Oncology
DX: C19 Malignant neoplasm of rectosigmoid junction (principal); G62.0 Drug-induced polyneuropathy; T45.1X5D Adverse effect of antineoplastic and immunosuppressive drugs, subsequent encounter; E11.42 Type 2 diabetes mellitus with diabetic polyneuropathy; E66.9 Obesity, unspecified; Z68.39 Body mass index [BMI] 39.0-39.9, adult; Z92.21 Personal history of antineoplastic chemotherapy
CPT/HCPCS: 99212; G0463